=== PATIENT | male | born 1960 | race African-American/Black ===

== ENCOUNTER 2018-12-01 19:59 | Emergency (ER) | payer MEDICAID, MEDICARE ==
[~2018-12-01] VITALS: Ht 170.2 cm; Wt 72.6 kg
[2018-12-01] MEDS ORDERED: NKM (20:09)
[2018-12-01 20:10] VITALS: BP 137/64
[2018-12-01 20:28] LABS: EOSINOPHILS % (AUTO) 1.7 % (0.0-3.0); HEMOGLOBIN 11.3 G/DL (14.2-18.0); LYMPHOCYTES % (AUTO) 37.6 % (20.0-45.0); MEAN CORPUSCULAR VOLUME 99 FL (80-99); MONOCYTES % (AUTO) 7.8 % (1.0-10.0); NEUTROPHILS % (AUTO) 51.9 % (45.0-75.0); PLATELET COUNT 121 K/UL (150-450); RED BLOOD COUNT 3.23 M/UL (4.70-6.10); RED CELL DISTRIBUTION WIDTH 18.6 % (11.6-14.8); WHITE BLOOD COUNT 6.3 K/UL (4.8-10.8)
[2018-12-01 20:43] LABS: ANION GAP 8 mmol/L (5-15); BLOOD UREA NITROGEN 10 mg/dL (7-18); CALCIUM 9.3 MG/DL (8.5-10.1); CARBON DIOXIDE 26 MMOL/L (21-32); CHLORIDE 103 MMOL/L (98-107); POTASSIUM 3.5 MMOL/L (3.5-5.1); SODIUM 137 MMOL/L (136-145)
--- NOTE | 2018-12-01 20:44 | Emergency Room Report ---
History of Present Illness General Chief Complaint: Dyspnea/Respdistress Source: Patient Present Illness HPI 58-year-old male with no medical problems presents with bilateral ear pain, loss of hearing, mild cough, sensation shortness of breath, subjective fever, denies hemoptysis, chest pain, abdominal pain, sore throat, any other complaints. Reports reports his symptoms started about 3 days ago, has not tried any medications for symptoms. Allergies: Coded Allergies: PENICILLINS (Verified Allergy, Unknown, 12/01/18) Patient History Past Medical History: see triage record Reviewed Nursing Documentation: PMH: Agreed; PSxH: Agreed Nursing Documentation-PMH Past Medical History: No Stated History Review of Systems All Other Systems: negative except mentioned in HPI Physical Exam Vital Signs Date Time Temp Pulse Resp B/P (MAP) Pulse Ox O2 Delivery O2 Flow Rate FiO2 12/01/18 20:05 98.2 72 24 137/64 (88) 100 Room Air Sp02 EP Interpretation: reviewed, normal General Appearance: no apparent distress, alert, non-toxic Head: normocephalic Eyes: bilateral eye normal inspection, bilateral eye PERRL, bilateral eye EOMI ENT: normal ENT inspection, hearing grossly normal, normal pharynx, no angioedema, normal voice, TMs + canals normal - +B/L erythema and bulging of tympanic membranes, uvula midline, moist mucus membranes, nasal congestion Neck: normal inspection, full range of motion, supple, supple/symm/no masses Respiratory: chest non-tender, lungs clear, normal breath sounds, chest symmetrical, palpation of chest normal Cardiovascular #1: normal peripheral pulses, regular rate, rhythm, no edema, no gallop, no JVD, no murmur, no rub Cardiovascular #2: 2+ radial (R), 2+ radial (L), 2+ dorsalis pedis (R), 2+ dorsalis pedis (L) Gastrointestinal: normal inspection, non tender, soft, no mass, no guarding, no rebound Rectal: deferred Genitourinary: normal inspection, no CVA tenderness Musculoskeletal: back normal, gait/station normal, normal range of motion, non- tender, no calf tenderness, Enedelia's Sign negative Neurologic: alert, responsive, email operations manager III-XII nml as tested, motor strength/tone normal, sensory intact, speech normal Psychiatric: judgement/insight normal, memory normal, mood/affect normal, no suicidal/homicidal ideation Skin: normal color, no rash, warm/dry, normal turgor Lymphatic: no adenopathy Medical Decision Making Diagnostic Impression: Primary Impression: Otitis media ER Course His work-up is fairly benign, but he has a complicated upper respiratory infection that has now triggered a bilateral otitis media. His chest x-ray is clear, his EKG and labs are pretty unremarkable, I do not have suspicion for more severe illness such as pulmonary embolism or ACS, given that patient is not having chest pain, he does sound congested and he is hard of hearing now that he has bilateral otitis media, I will discharge him with Augmentin, follow- up with ENT and a primary care doctor. EKG Diagnostic Results EKG Time: 20:13 EP Interpretation: no stemi, no [id number] Rate: normal Rhythm: NSR ST Segments: no acute changes ASA given to the pt in ED: No Rhythm Strip Diag. Results Rhythm Strip Time: 21:30 EP Interpretation: yes Rate: 67 Rhythm: NSR, no PVC's, no ectopy Chest X-Ray Diagnostic Results Chest X-Ray Diagnostic Results : Chest X-Ray Ordered: Yes # of Views/Limited/Complete: 1 View Indication: Shortness of Breath EP Interpretation: Yes Interpretation: no consolidation, no effusion, no pneumothorax, no acute cardiopulmonary disease Impression: No acute disease Electronically Signed by: Reshma Hernandez MD Last Vital Signs Date Time Temp Pulse Resp B/P (MAP) Pulse Ox O2 Delivery O2 Flow Rate FiO2 12/01/18 20:05 98.2 72 24 137/64 (88) 100 Room Air Disposition: HOME, SELF-CARE Condition: Stable RESHMA HERNANDEZ M.D Dec 01, 2018 20:44
[2018-12-01 20:54] LABS: ALANINE AMINOTRANSFERASE 17 U/L (12-78); ALBUMIN 3.5 G/DL (3.4-5.0); ALBUMIN/GLOBULIN RATIO 0.8 (1.0-2.7); ALKALINE PHOSPHATASE 79 U/L (46-116); ASPARTATE AMINO TRANSFERASE 16 U/L (15-37); BILIRUBIN,TOTAL 0.5 MG/DL (0.2-1.0)
[2018-12-01] MEDS ORDERED: AUGMENTIN 875-1 EAC1 ORAL (21:32)
[2018-12-01] MEDS ORDERED: IBUPROFEN600 MG ORAL (21:32)
[2018-12-01 21:45] VITALS: BP 137/64
[2018-12-01] MEDS ORDERED: Ketorolac 60mg Inj IM ONE (21:45)
--- NOTE | 2018-12-02 17:47 | Diagnostic Imaging Report ---
Indication: Shortness of breath Technique: One view of the chest Comparison: 03/13/2009 Findings: Lungs and pleural spaces are clear. Heart size is normal. There is some atelectasis at the left lung base. Surgical clips are seen in the region of the gastroesophageal junction Impression: No acute process
== END 2018-12-01 21:45 | disposition home or self-care (01) ==
LOC: EMR 20:32
DX: H66.93 Otitis media, unspecified, bilateral (principal); R06.02 Shortness of breath; Z88.0 Allergy status to penicillin
CPT/HCPCS: 36415; 71045; 80053; 83880; 84484; 85025; 85610; 85730; 93005; 96372; 99283

== ENCOUNTER 2018-12-07 17:58 | Emergency (ER) | payer SELFPAY ==
[~2018-12-07] VITALS: Ht 167.6 cm; Wt 72.6 kg
[~2018-12-07 17:58] MED LIST: AUGMENTIN 875-1 EAC1 ORAL; IBUPROFEN600 MG ORAL; NKM
[2018-12-07 18:06] VITALS: BP 146/73
[2018-12-07] MEDS ORDERED: CEFDINIR300 MG PO (18:19)
--- NOTE | 2018-12-07 18:19 | Emergency Room Report ---
History of Present Illness General Chief Complaint: Earache Source: Patient Present Illness HPI 58-year-old male with history of bilateral otitis media who was treated here at [facility] a week ago here complaining of hearing loss in the left ear and reduced hearing in right ear x2 days. Denies any pus drainage from the ear. Denies fever and chills, rating the pain 7 out of 10 without radiation. Has been taking ibuprofen for pain. However has very low hearing in the left side. Denies bleeding from the ear. Denies all other URI symptoms. Denies chest pain , shortness of breath, palpitation, nausea vomiting abdominal pain. Allergies: Coded Allergies: PENICILLINS (Verified Allergy, Unknown, 12/01/18) Patient History Past Medical History: see triage record Past Surgical History: unable to obtain Pertinent Family History: none Immunizations: UTD Reviewed Nursing Documentation: PMH: Agreed; PSxH: Agreed Nursing Documentation-PMH Past Medical History: No Stated History Review of Systems All Other Systems: negative except mentioned in HPI Physical Exam Vital Signs Date Time Temp Pulse Resp B/P (MAP) Pulse Ox O2 Delivery O2 Flow Rate FiO2 12/07/18 18:06 97.9 50 16 146/73 (97) 96 Room Air Sp02 EP Interpretation: reviewed, normal General Appearance: normal inspection, well appearing, no apparent distress, alert, GCS 15 Head: normocephalic, atraumatic Eyes: bilateral eye normal inspection, bilateral eye PERRL ENT: hearing grossly normal, normal pharynx, other - left TM perforation and rupture Neck: normal inspection, full range of motion, supple Respiratory: normal inspection, chest non-tender, lungs clear, normal breath sounds Cardiovascular #1: normal inspection, normal peripheral pulses, regular rate, rhythm, no murmur Gastrointestinal: normal inspection, soft Genitourinary: no CVA tenderness Musculoskeletal: normal inspection, back normal Neurologic: normal inspection, alert, oriented x3 Psychiatric: normal inspection, judgement/insight normal Skin: normal inspection, normal color, no rash, warm/dry, palpation normal Lymphatic: normal inspection, no adenopathy Medical Decision Making PA Attestation All my diagnosis and treatment plans were reviewed ad discussed with my supervising physician Diagnostic Impression: Primary Impression: Tympanic membrane perforation Additional Impressions: Otitis media Tympanic membrane rupture ER Course 58-year-old male with history of bilateral otitis media who was treated here at [facility] a week ago here complaining of hearing loss in the left ear and reduced hearing in right ear x2 days. Denies any pus drainage from the ear. Denies fever and chills, rating the pain 7 out of 10 without radiation. Has been taking ibuprofen for pain. However has very low hearing in the left side. Denies bleeding from the ear. Denies all other URI symptoms. Denies chest pain , shortness of breath, palpitation, nausea vomiting abdominal pain. Ddx considered but are not limited to: OM, OE, tympanic membrane perforation, tympanic membrane rupture Vital signs: are WNL, pt. is afebrile H&PE are most consistent with: Tympanic membrane perforation and rupture of left ear, otitis media ORDERS: Ceftin ear as patient reports that Augmentin is making him not feel good ED INTERVENTIONS: None required at this time. DISCHARGE: At this time pt. is stable for d/c to home. Will provide printed patient care instructions, and any necessary prescriptions. Care plan and follow up instructions have been discussed with the patient prior to discharge. Patient to follow-up with ear nose throat doctor through his primary care physician I explained to the patient that the rupture of the tympanic members takes time to heal however he will not regain his hearing until the right has healed Last Vital Signs Date Time Temp Pulse Resp B/P (MAP) Pulse Ox O2 Delivery O2 Flow Rate FiO2 12/07/18 18:06 97.9 16 146/73 96 Room Air 12/07/18 18:06 50 Disposition: HOME, SELF-CARE Condition: Stable Scripts Cefdinir (CEFDINIR) 300 Mg Capsule 300 MG PO BID for 7 Days, #14 CAP Prov: Evaristo Coello 12/07/18 Patient Instructions: Otitis Media, Adult, [id number], Tympanic Membrane Perforation-SportsMed Additional Instructions: Follow-up with a ear nose throat doctor when the tympanic membrane has perforated and ruptured you will regain hearing however it takes time Evaristo Coello Dec 07, 2018 18:19
[2018-12-07 18:29] VITALS: BP 146/73
== END 2018-12-07 18:29 | disposition home or self-care (01) ==
LOC: EMR 18:10
DX: H72.92 Unspecified perforation of tympanic membrane, left ear (principal); H66.92 Otitis media, unspecified, left ear; Z88.0 Allergy status to penicillin
CPT/HCPCS: 99282